=== PATIENT | male | born 1985 | race Two or more races ===

== ENCOUNTER 2022-02-01 17:18 | Emergency (ER) | payer SELFPAY ==
[~2022-02-01] VITALS: Ht 170.2 cm; Wt 74.8 kg
--- NOTE | 2022-02-01 17:40 | NUR ---
BIB C/O PENILE DISCHARGED STARTED TUESDAY. THERE IS A SCRATCH ON THE SIDE OF PENIS AND DISCHARGE COMING OUT. PLACED COMFORTABLY IN BED. VITALS CHECKED.
--- NOTE | 2022-02-01 17:50 | NUR ---
SEEN BY DR MCALLISTER AT BEDSIDE
--- NOTE | 2022-02-01 18:16 | NUR ---
Patient discharged to home in stable condition. Written and verbal after care instructions given. Patient verbalizes understanding of instruction.
[2022-02-01 18:18] VITALS: BP 133/79
== END 2022-02-01 18:19 | disposition home or self-care (01) ==
LOC: ER 17:22
DX: B35.6 Tinea cruris (principal)